=== PATIENT | male | born 1965 | race Caucasian/White ===

== ENCOUNTER 2018-03-14 12:27 | Day surgery (SDC) | payer OTHER ==
[~2018-03-14] VITALS: Ht 190.5 cm; Wt 119.9 kg
[~2018-03-14 12:27] MED LIST: CHOL10002; GLUC500; Hair, Skin & N1 EACH
== END 2018-03-14 15:44 | disposition home or self-care (01) ==
LOC: ORSCSDS 12:27
PROVIDERS: Internal Medicine Gastroenterology
PROC: 0DBL8ZX Excision of Transverse Colon, Via Natural or Artificial Opening Endoscopic, Diagnostic (ICD-10-PCS; principal; 2018-03-14 14:00)
PROC: 0DB98ZX Excision of Duodenum, Via Natural or Artificial Opening Endoscopic, Diagnostic (ICD-10-PCS; principal; 2018-03-14 14:00)
PROC: 0DB68ZX Excision of Stomach, Via Natural or Artificial Opening Endoscopic, Diagnostic (ICD-10-PCS; principal; 2018-03-14 14:00)
PROC: 0DBK8ZX Excision of Ascending Colon, Via Natural or Artificial Opening Endoscopic, Diagnostic (ICD-10-PCS; principal; 2018-03-14 14:00)
DX: R10.9 Unspecified abdominal pain (principal); D12.2 Benign neoplasm of ascending colon; D12.3 Benign neoplasm of transverse colon; K20.9 Esophagitis, unspecified; K29.70 Gastritis, unspecified, without bleeding; K29.80 Duodenitis without bleeding; K64.8 Other hemorrhoids; K59.00 Constipation, unspecified; G47.33 Obstructive sleep apnea (adult) (pediatric); E66.9 Obesity, unspecified; Z68.33 Body mass index [BMI] 33.0-33.9, adult; Z79.899 Other long term (current) drug therapy
CPT/HCPCS: J7120

== ENCOUNTER → 2020-01-14 | Outpatient (CLI) | payer OTHER | END | disposition home or self-care (01) | LOC: LAB SHORT 14:45 → PLD 14:45 | DX: L72.8 Other follicular cysts of the skin and subcutaneous tissue (principal) | CPT/HCPCS: 88304 ==

== ENCOUNTER 2021-08-18 06:30 | Day surgery (SDC) | payer OTHER ==
[~2021-08-18] VITALS: Ht 188 cm; Wt 136.2 kg
--- NOTE | 2021-08-18 07:14 | NUR ---
Ambulatory in Day Surgery Patient states colon prep results clear. History, Chart, Medications and Allergies reviewed before start of procedure. Pre-Op teaching done. Pt verbalizes understanding. Patient States Post-Procedure ride home has been arranged.
--- NOTE | 2021-08-18 07:58 | NUR ---
08/18/21 0758 Alexa Celaya MONITOR INTACT WITH CONTINUOUS PULSE OXIMETRY AND INTERMITTENT BP.
--- NOTE | 2021-08-18 09:01 | NUR ---
PT VERY SLEEPY RESPONDS TO VOICE BUT THEN EASILY FALLS BACK TO SLEEP 2 LITERS O2 VIA NC TO KEEP SATS ABOVE 92%
--- NOTE | 2021-08-18 10:00 | NUR ---
Discharge instructions reviewed with patient. Patient verbalizes understanding. Copy given to patient to take home. Patient States Post-Procedure ride home has been arranged. Discharged via wheelchair to private car for ride home. PT UP AND DRESSED STABLE ON FEET DENIES ANY NEEDS DISCHARGE VOLUNTEER HERE TO GIVE WC RIDE OUT
== END 2021-08-18 22:41 | disposition home or self-care (01) ==
LOC: ORSCMMR 06:30 → ORSCSDS 08:00 → ORD 08:00 → ORSCMMR 08:00
PROVIDERS: Surgery
PROC: 0DB98ZX Excision of Duodenum, Via Natural or Artificial Opening Endoscopic, Diagnostic (ICD-10-PCS; principal; 2021-08-18 08:00)
PROC: 0DBN8ZX Excision of Sigmoid Colon, Via Natural or Artificial Opening Endoscopic, Diagnostic (ICD-10-PCS; principal; 2021-08-18 08:00)
PROC: 0DB58ZX Excision of Esophagus, Via Natural or Artificial Opening Endoscopic, Diagnostic (ICD-10-PCS; principal; 2021-08-18 08:00)
DX: R19.4 Change in bowel habit (principal); K29.80 Duodenitis without bleeding; K63.5 Polyp of colon; I10 Essential (primary) hypertension; G47.33 Obstructive sleep apnea (adult) (pediatric); K76.0 Fatty (change of) liver, not elsewhere classified; E66.9 Obesity, unspecified; Z68.38 Body mass index [BMI] 38.0-38.9, adult
CPT/HCPCS: 88305; J1100; J2405; J2704; J3010; J7120

== ENCOUNTER 2023-12-13 14:51 | Emergency (ER) | payer OTHER ==
[~2023-12-13] VITALS: Ht 190.5 cm; Wt 142.9 kg
[~2023-12-13 14:51] MED LIST changes: +GABA300 PO
[2023-12-13 15:09] VITALS: BP 151/101
[2023-12-13] MEDS ORDERED: Ketorolac Tromethamine 15mg Vial IM ONE (17:00)
== END 2023-12-13 17:14 | disposition home or self-care (01) ==
LOC: ER 14:51
DX: M79.661 Pain in right lower leg (principal); J43.0 Unilateral pulmonary emphysema [MacLeod's syndrome]; Z96.651 Presence of right artificial knee joint; Z79.899 Other long term (current) drug therapy
CPT/HCPCS: 93971; 96372; 99283-25; J1885

== ENCOUNTER 2024-04-23 06:07 | Emergency (ER) | payer OTHER ==
[~2024-04-23] VITALS: Ht 190.5 cm; Wt 142.9 kg
[2024-04-23] MEDS ORDERED: MELO7.5 PO (06:28)
[2024-04-23 07:20] VITALS: BP 142/83
== END 2024-04-23 07:31 | disposition home or self-care (01) ==
LOC: ER 06:07
DX: S50.811A Abrasion of right forearm, initial encounter (principal); V43.52XA Car driver injured in collision with other type car in traffic accident, initial encounter; Z79.899 Other long term (current) drug therapy
CPT/HCPCS: 99283